=== PATIENT | male | born 2000 | race Hispanic/Latino ===

== ENCOUNTER 2018-06-23 23:54 | Emergency (ER) | payer OTHER ==
--- OUTSIDE RECORDS SUMMARY | 2018-06-23 23:56 | XMS REPORT ---
:2000 Author Organization [facility] Address [address] [place] [address] Dr. Baltazar [address] [place] [id number] Care Team Providers Name Role Phone Unavailable Unavailable Unavailable Problems This patient has no known problems. Allergies, Adverse Reactions, Alerts This patient has no known allergies or adverse reactions. Medications This patient has no known medications.
--- NOTE | 2018-06-24 01:11 | ER ---
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 Transition of care: patient was not received from another setting of care. Onset of symptoms was June 23, 2018. Risk Assessment: Do you want to hurt yourself or someone else? Patient reports no desire to harm self or others. Initial Sepsis Screen: Does the patient meet any 2 criteria? No. Patient's initial sepsis screen is negative. Does the patient have a suspected source of infection? No. Patient's initial sepsis screen is negative. Care prior to arrival: None. 00:16 Method Of Arrival: Ambulatory jd3 00:16 Acuity: CARIDAD 4 jd3 Historical: - Allergies: 00:19 No Known Allergies; jd3 - Home Meds: 00:19 None [Active]; jd3 - PMHx: 00:19 None; jd3 - PSHx: 00:19 Tonsillectomy; jd3 - Immunization history:: Adult Immunizations up to date. - Social history:: Smoking status: Patient/guardian denies using tobacco. - Ebola Screening: : Patient negative for fever greater than or equal to 101.5 degrees Fahrenheit, and additional compatible Ebola Virus Disease symptoms. Screenin:22 Abuse screen: Denies threats or abuse. Nutritional screening: No deficits noted. jd3 Tuberculosis screening: No symptoms or risk factors identified. Fall Risk Ambulatory Aid- None/Bed Rest/Nurse Assist (0 pts). Gait- Normal/Bed Rest/Wheelchair (0 pts) Mental Status- Oriented to own ability (0 pts). Total Harding Fall Scale indicates No Risk (0-24 pts). Assessment: 00:20 General: Appears in no apparent distress. uncomfortable, Behavior is calm, cooperative, jd3 appropriate for age. Pain: Complains of pain in low back area Quality of pain is described as aching. Neuro: Level of Consciousness is awake, alert, obeys commands, Oriented to person, place, time, situation, Appropriate for age. Cardiovascular: Capillary refill < 3 seconds Patient's skin is warm and dry. Respiratory: Airway is patent Respiratory effort is even, unlabored, Respiratory pattern is regular, symmetrical. GI: No signs and/or symptoms were reported involving the gastrointestinal system. : Reports pain in lower back Denies burning with urination, inability to void, urinary frequency, blood in the urine. EENT: No signs and/or symptoms were reported regarding the EENT system. Derm: Skin is intact, Skin is dry, Skin is normal, Skin temperature is warm. Musculoskeletal: Circulation, motion, and sensation intact. Range of motion: intact in all extremities, back pain not reproducible by palpation. 01:08 Reassessment: provider at bedside. jd3 01:16 Reassessment: Patient appears in no apparent distress at this time. Patient and/or jd3 family updated on plan of care and expected duration. Pain level reassessed. Patient is alert, oriented x 3, equal unlabored respirations, skin warm/dry/pink. Patient states feeling better. Vital Signs: 00:19 BP 153 / 85; Pulse 88; Resp 17 S; Temp 98.4(O); Pulse Ox 100% on R/A; Weight 113.4 kg jd3 (R); Height 6 ft. 1 in. (185.42 cm) (R); Pain 5/10; 00:19 Body Mass Index 32.98 (113.40 kg, 185.42 cm) jd3 ED Course: 00:05 Patient arrived in ED. es 00:05 Samantha Florentino MD is Private Physician. es 00:08 Lee Smith RN is Primary Nurse. jd3 00:18 Triage completed. jd3 00:20 Arm band placed on. jd3 00:21 Herman Sanchez MD is Attending Physician. ps1 00:23 Patient has correct armband on for positive identification. Bed in low position. Call jd3 light in reach. Side rails up X 1. Adult w/ patient. 01:10 Samantha Florentino MD is Referral Physician. ps1 01:15 No provider procedures requiring assistance completed. Patient did not have IV access jd3 during this emergency room visit. Administered Medications: No medications were administered Outcome: 01:10 Discharge ordered by . ps1 01:16 Discharged to home ambulatory. jd3 01:16 Condition: stable 01:16 Discharge instructions given to patient, Instructed on discharge instructions, follow up and referral plans. medication usage, Demonstrated understanding of instructions, follow-up care, medications, Prescriptions given X 3. 01:17 Patient left the ED. jd3 Signatures: Shaniqua Jane Jonathon, RN RN jd3 Herman Sanchez MD MD ps1 Corrections: (The following items were deleted from the chart) 00:25 00:20 : No signs and/or symptoms were reported regarding the genitourinary system. jd3jd3 00:25 00:20 EENT: No signs and/or symptoms were reported regarding the EENT system. jd3 jd3
--- NOTE | 2018-06-24 01:11 | EDPHYS ---
Physician Documentation [facility] Name: Denny Beasley Age: 17 yrs Sex: Male : 2000 Arrival Date: 06/24/2018 Time: 00:05 Bed 24 Private MD: Samantha Florentino ED Physician Herman Sanchez HPI: 06/24 00:53 This 17 yrs old Male presents to ER via Ambulatory with complaints of Back ps1 Pain. 00:53 atraumatic. localized to right lower back. No urinary complaints. No fever. Pain is ps1 rated as mild and improving. Not taking any medications. Has been mowing yards. . Historical: - Allergies: 00:19 No Known Allergies; jd3 - Home Meds: 00:19 None [Active]; jd3 - PMHx: 00:19 None; jd3 - PSHx: 00:19 Tonsillectomy; jd3 - Immunization history:: Adult Immunizations up to date. - Social history:: Smoking status: Patient/guardian denies using tobacco. - Ebola Screening: : Patient negative for fever greater than or equal to 101.5 degrees Fahrenheit, and additional compatible Ebola Virus Disease symptoms. ROS: 00:53 Constitutional: Negative for fever, chills, and weight loss, Eyes: Negative for injury, ps1 pain, redness, and discharge, Cardiovascular: Negative for chest pain, palpitations, and edema, Respiratory: Negative for shortness of breath, cough, wheezing, and pleuritic chest pain, Abdomen/GI: Negative for abdominal pain, nausea, vomiting, diarrhea, and constipation, MS/Extremity: Negative for injury and deformity, Skin: Negative for injury, rash, and discoloration, Neuro: Negative for headache, weakness, numbness, tingling, and seizure. 00:53 Back: Positive for pain with movement. Exam: 00:53 Constitutional: This is a well developed, well nourished patient who is awake, alert, ps1 and in no acute distress. Head/Face: Normocephalic, atraumatic. Eyes: Pupils equal round and reactive to light, extra-ocular motions intact. Lids and lashes normal. Conjunctiva and sclera are non-icteric and not injected. Chest/axilla: Normal chest wall appearance and motion. Nontender with no deformity. No lesions are appreciated. Cardiovascular: Regular rate and rhythm. No gallops, murmurs, or rubs. Normal PMI, no JVD. No pulse deficits. Respiratory: Lungs have equal breath sounds bilaterally, clear to auscultation and percussion. No rales, rhonchi or wheezes noted. No increased work of breathing, no retractions or nasal flaring. Abdomen/GI: Soft, non-tender, with normal bowel sounds. No distension or tympany. No guarding or rebound. No evidence of tenderness throughout. Skin: Warm, dry with normal turgor. Normal color with no rashes, no lesions, and no evidence of cellulitis. MS/ Extremity: Pulses equal, no cyanosis. Neurovascular intact. Full, normal range of motion. Neuro: Awake and alert, GCS 15, oriented to person, place, time, and situation. Cranial nerves II-XII grossly intact. Sensory grossly intact. Psych: Awake, alert, with orientation to person, place and time. Behavior, mood, and affect are within normal limits. 00:53 Back: pain, that is mild, ROM is normal, see osteopathic examination. Vital Signs: 00:19 BP 153 / 85; Pulse 88; Resp 17 S; Temp 98.4(O); Pulse Ox 100% on R/A; Weight 113.4 kg jd3 (R); Height 6 ft. 1 in. (185.42 cm) (R); Pain 5/10; 00:19 Body Mass Index 32.98 (113.40 kg, 185.42 cm) jd3 Procedures: 01:08 osteopathic manipulative treatment performed by HVLA after patient was evaluated in the ps1 prone and seated position. Patient had right SI joint dysfunction, lumbar group curve L3-5 to right with compensatory changes in mid and upper thoracic spine. Lumbar roll. HVLA. Manual decompression. Stable, increased ROM and less pain. . MDM: 01:08 Data reviewed: vital signs, nurses notes, and as a result, I will discharge patient. ps1 01:10 Patient medically screened. ps1 Administered Medications: No medications were administered Disposition: 06/24/18 01:10 Discharged to Home. Impression: Low back pain. - Condition is Stable. - Discharge Instructions: Back Pain, Adult. - Prescriptions for Anaprox DS 550 mg Oral Tablet - take 1 tablet by ORAL route every 12 hours As needed; 20 tablet. Robaxin 500 mg Oral Tablet - take 2 tablet by ORAL route every 6 hours As needed; 40 tablet. Medrol (Leonardo) 4 mg Oral Tablets, Dose Pack - take 1 tablet by ORAL route as directed - follow package instructions; 1 packet. - Medication Reconciliation Form, Thank You Letter, Antibiotic Education, Prescription Opioid Use form. - Follow up: Samantha Florentino MD; When: As needed; Reason: Recheck today's complaints, Continuance of care, Re-evaluation by your physician. Follow up: Emergency Department; When: As needed; Reason: Worsening of condition. Signatures: Lee Smith RN RN jd3 Herman Sanchez MD MD ps1 Corrections: (The following items were deleted from the chart) 01:17 01:10 06/24/2018 01:10 Discharged to Home. Impression: Low back pain. Condition is jd3 Stable. Forms are Medication Reconciliation Form, Thank You Letter, Antibiotic Education, Prescription Opioid Use. Follow up: Samantha Florentino; When: As needed; Reason: Recheck today's complaints, Continuance of care, Re-evaluation by your physician. Follow up: Emergency Department; When: As needed; Reason: Worsening of condition. ps1
== END 2018-06-24 01:17 | disposition home or self-care (01) ==
LOC: ER 23:54
DX: M54.5 Low back pain (principal)
CPT/HCPCS: 99282

== ENCOUNTER 2019-06-12 11:03 | Emergency (ER) | payer OTHER, SELFPAY ==
[2019-06-12 12:07] VITALS: BP 152/89; TEMP 97.3; O2SAT 100
== END 2019-06-12 11:57 | disposition home or self-care (01) ==
LOC: ER 11:03
DX: R19.7 Diarrhea, unspecified (principal)
CPT/HCPCS: 99282

== ENCOUNTER 2022-11-18 11:19 | Emergency (ER) | payer SELFPAY ==
--- OUTSIDE RECORDS SUMMARY | 2022-11-18 11:23 | XMS REPORT | Continuity of Care Document ---
:2000 Author Organization [facility] Address [address] [place] [address] [place] [id number] Care Team Providers Name Role Phone Unavailable Unavailable Unavailable Problems This patient has no known problems. Allergies, Adverse Reactions, Alerts This patient has no known allergies or adverse reactions. Medications This patient has no known medications. Procedures This patient has no known procedures. Results This patient has no known results.
[2022-11-18] MEDS ORDERED: ONDANSETRON 4 MG (ODT) TAB ONE (11:49)
[2022-11-18 12:27] LABS: Absolute Lymphocytes (CBC) 2.5 K/uL (0.7-4.9); Hematocrit 49.3 % (39.6-49.0); MCV 85.6 fL (80-100); MPV 7.6 fL (7.6-11.3); Platelets 298 thou/uL (152-406); RBC Red Blood Cell Count 5.77 M/uL (4.33-5.43)
[2022-11-18] MEDS ORDERED: NA CHLORIDE 0.9% 1,000 ML ONE (12:44)
[2022-11-18 12:49] LABS: Albumin 4.4 g/dL (3.4-5.0); Bilirubin Total 0.3 mg/dL (0.2-1.0); Potassium 3.9 mEq/L (3.5-5.1); Protein, Total 8.4 g/dL (6.4-8.2)
--- NOTE | 2022-11-18 13:49 | EDPHYS ---
Physician Documentation [facility] Name: Denny Beasley Age: 22 yrs Sex: Male : 2000 Arrival Date: 11/18/2022 Time: :19 Bed 18 Private MD: ED Physician Loki Gallo HPI: 11/18 12:07 This 22 yrs old Male presents to ER via Wheelchair with complaints of rt Nausea/Vomiting, Dizziness. 12:07 Patient presents to the ED with nausea, vomiting, lightheadedness. This started acutely rt at work. Denies any abdominal pain. Denies other acute complaints at this time. Symptoms are moderate in severity, no other aggravating alleviating factors.. Historical: - Allergies: : No Known Allergies; ko1 - Home Meds: : None [Active]; ko1 - Immunization history:: Adult Immunizations up to date. - Social history:: Smoking status: Patient denies any tobacco usage or history of. - Family history:: not pertinent. ROS: 12:07 Constitutional: Negative for fever, chills, and weight loss, Cardiovascular: Negative rt for chest pain, palpitations, and edema, Respiratory: Negative for shortness of breath, cough, wheezing, and pleuritic chest pain, MS/Extremity: Negative for injury and deformity, Skin: Negative for injury, rash, and discoloration, Psych: Negative for depression, anxiety, suicide ideation, homicidal ideation, and hallucinations. 12:07 Abdomen/GI: Positive for nausea and vomiting, Negative for abdominal pain. 12:07 Neuro: Positive for dizziness, Negative for altered mental status. Exam: 12:08 Constitutional: This is a well developed, well nourished patient who is awake, alert, rt and in no acute distress. Head/Face: Normocephalic, atraumatic. Chest/axilla: Normal chest wall appearance and motion. Nontender with no deformity. No lesions are appreciated. Cardiovascular: Regular rate and rhythm with a normal S1 and S2. No gallops, murmurs, or rubs. Normal PMI, no JVD. No pulse deficits. Respiratory: Lungs have equal breath sounds bilaterally, clear to auscultation and percussion. No rales, rhonchi or wheezes noted. No increased work of breathing, no retractions or nasal flaring. Abdomen/GI: Soft, non-tender, with normal bowel sounds. No distension or tympany. No guarding or rebound. No evidence of tenderness throughout. Skin: Warm, dry with normal turgor. Normal color with no rashes, no lesions, and no evidence of cellulitis. MS/ Extremity: Pulses equal, no cyanosis. Neurovascular intact. Full, normal range of motion. Neuro: Awake and alert, GCS 15, oriented to person, place, time, and situation. Cranial nerves II-XII grossly intact. Motor strength 5/5 in all extremities. Sensory grossly intact. Cerebellar exam normal. Normal gait. Psych: Awake, alert, with orientation to person, place and time. Behavior, mood, and affect are within normal limits. 12:31 ECG was reviewed by the Attending Physician. rt Vital Signs: 11:30 BP 129 / 72; Pulse 67; Resp 16; Temp 96.8; Pulse Ox 100% ; ko1 12:44 BP 129 / 83; Pulse 75; Resp 16; Pulse Ox 100% on R/A; Pain 0/10; me1 14:02 BP 141 / 77; Pulse 77; Resp 16; Pulse Ox 100% ; me1 14:15 BP 148 / 74; Pulse 77; Resp 17; Pulse Ox 100% on R/A; me1 12:44 Pain Scale: Adult me1 MDM: 11:36 Patient medically screened. rt 15:57 Differential diagnosis: Gastroenteritis, dehydration, gastritis. Data reviewed: vital rt signs, nurses notes. I considered the following discharge prescriptions or medication management in the emergency department Medications were administered in the Emergency Department. See MAR. Test considered but Not performed: CT: Patient with complete resolution of symptoms with IV fluids, Zofran. He does have a white count, I reexamined the patient's abdomen, there is no areas of tenderness. Low suspicion for appendicitis, cholecystitis clinically, CT scan is not indicated at this time, patient instructed to return for any abdominal pain or other concerning symptoms.. Counseling: I had a detailed discussion with the patient and/or guardian regarding the historical points, exam findings, and any diagnostic results supporting the discharge/admit diagnosis, lab results, the need for outpatient follow up, to return to the emergency department if symptoms worsen or persist or if there are any questions or concerns that arise at home. Response to treatment: the patient's symptoms have resolved after treatment. 11/18 11:37 Order name: CBC with Diff; Complete Time: 12:49 rt 11/18 11:37 Order name: CMP; Complete Time: 12:49 rt 11/18 11:37 Order name: Lipase; Complete Time: 12:49 rt 11/18 11:37 Order name: EKG; Complete Time: 11:38 rt 11/18 11:37 Order name: IV Saline Lock; Complete Time: 12:23 rt 11/18 11:37 Order name: Labs collected and sent; Complete Time: 12:23 rt 11/18 11:37 Order name: EKG - Nurse/Tech; Complete Time: 12:23 rt EC:31 Rate is 77 beats/min. Rhythm is regular, Normal Sinus Rhythm with No ectopy. QRS Roebling rt is Normal. NM interval is normal. QRS interval is normal. QT interval is normal. No Q waves. T waves are Normal. No ST changes noted. Interpreted by me. Administered Medications: 11:38 Drug: Ondansetron Oral Disintegrating Tablet Oral Disintegrating Tablet 4 mg Route: PO; ko1 12:43 Follow up: Response: No adverse reaction; Nausea is decreased me1 12:38 Drug: NS 0.9% IV 1000 ml Route: IV; Rate: 1 bolus; Site: right antecubital; me1 13:15 Follow up: IV Status: Completed infusion; IV Intake: 1000ml me1 Disposition Summary: 11/18/22 13:49 Discharge Ordered Location: Home rt Problem: new rt Symptoms: have improved rt Condition: Stable rt Diagnosis - Nausea with vomiting, unspecified rt - Syncope Near rt Followup: rt - With: Private Physician - When: 2 - 3 days - Reason: Discharge Instructions: - Discharge Summary Sheet rt - Nausea and Vomiting, Adult rt - Near-Syncope rt Forms: - Work release form rt - Medication Reconciliation Form rt - Thank You Letter rt - Antibiotic Education rt - Prescription Opioid Use rt - Patient Portal Instructions rt - Leadership Thank You Letter rt Prescriptions: - ondansetron 4 mg Oral Tablet,disintegrating - take 1 tablet by ORAL route every 6 hours; 21 tablet; Refills: 0, Product rt Selection Permitted Signatures: [facility] Chrystal Razo RN RN ko1 Loki Gallo MD MD rt Celia Blanco RN RN me1
--- NOTE | 2022-11-18 13:49 | ER ---
Nurse's Notes [facility] Name: Denny Beasley Age: 22 yrs Sex: Male : 2000 Arrival Date: 11/18/2022 Time: 11:19 Bed 18 Private MD: Diagnosis: Nausea with vomiting, unspecified;Syncope Near Presentation: 11/18 11:30 Chief complaint: Patient states: nausea vomiting and dizziness started this morning at ko1 work. Coronavirus screen: At this time, the client does not indicate any symptoms associated with coronavirus-19. Ebola Screen: No symptoms or risks identified at this time. Initial Sepsis Screen: Does the patient meet any 2 criteria? No. Patient's initial sepsis screen is negative. Does the patient have a suspected source of infection? No. Patient's initial sepsis screen is negative. Risk Assessment: Do you want to hurt yourself or someone else? Patient reports no desire to harm self or others. Onset of symptoms was November 18, 2022. 11:30 Method Of Arrival: Wheelchair ko1 11:30 Acuity: CARIDAD 3 ko1 Triage Assessment: 11:31 General: Appears ill, Behavior is calm, cooperative, appropriate for age. Pain: Denies ko1 pain. GI: Reports nausea, vomiting. Historical: - Allergies: 11:31 No Known Allergies; ko1 - Home Meds: 11:31 None [Active]; ko1 - Immunization history:: Adult Immunizations up to date. - Social history:: Smoking status: Patient denies any tobacco usage or history of. - Family history:: not pertinent. Screenin:40 [facility] ED Fall Risk Assessment (Adult) History of falling in the last 3 months, me1 including since admission No falls in past 3 months (0 pts) Confusion or Disorientation No (0 pts) Intoxicated or Sedated No (0 pts) Impaired Gait Yes (1 pt) Mobility Assist Device Used No (0 pt) Altered Elimination No (0 pt) Score/Fall Risk Level 0 - 2 = Low Risk. Abuse screen: Denies threats or abuse. Nutritional screening: No deficits noted. Tuberculosis screening: No symptoms or risk factors identified. Assessment: 12:40 General: Appears uncomfortable, well groomed, well developed, well nourished, Behavior me1 is calm, cooperative, appropriate for age, Reports he was at work this morning and became dizzy, nauseated and unsteady on his feet. Denies fever, feeling ill, fatigue, chills. Pain: Denies pain. Neuro: Level of Consciousness is awake, alert, obeys commands, Oriented to person, place, time, situation, Appropriate for age. Cardiovascular: Capillary refill < 3 seconds Patient's skin is warm and dry. Respiratory: Airway is patent Respiratory effort is even, unlabored, Respiratory pattern is regular, symmetrical. GI: Abdomen is non-distended, Reports nausea. Vital Signs: 11:30 BP 129 / 72; Pulse 67; Resp 16; Temp 96.8; Pulse Ox 100% ; ko1 12:44 BP 129 / 83; Pulse 75; Resp 16; Pulse Ox 100% on R/A; Pain 0/10; me1 14:02 BP 141 / 77; Pulse 77; Resp 16; Pulse Ox 100% ; me1 14:15 BP 148 / 74; Pulse 77; Resp 17; Pulse Ox 100% on R/A; me1 12:44 Pain Scale: Adult wi1 ED Course: 11:22 Patient arrived in ED. mr 11:25 Loki Gallo MD is Attending Physician. rt 11:31 Triage completed. ko1 11:31 Arm band placed on right wrist. Patient placed in waiting room, Patient notified of ko1 wait time. 12:16 Celia Blanco, RN is Primary Nurse. me1 12:23 CBC with Diff Sent. bc6 12:23 CMP Sent. bc6 12:23 Lipase Sent. bc6 12:23 Inserted saline lock: 20 gauge in right antecubital area, using aseptic technique. bc6 Blood collected. 12:40 Patient has correct armband on for positive identification. Bed in low position. Call me1 light in reach. Side rails up X 1. Provided Education on: POC. Verbalized understanding.. 12:40 No provider procedures requiring assistance completed. Flushed right antecubital. me1 14:15 IV discontinued, intact, bleeding controlled, No redness/swelling at site. Pressure me1 dressing applied. Administered Medications: 11:38 Drug: Ondansetron Oral Disintegrating Tablet Oral Disintegrating Tablet 4 mg Route: PO; ko1 12:43 Follow up: Response: No adverse reaction; Nausea is decreased me1 12:38 Drug: NS 0.9% IV 1000 ml Route: IV; Rate: 1 bolus; Site: right antecubital; me1 13:15 Follow up: IV Status: Completed infusion; IV Intake: 1000ml me1 Medication: 12:40 VIS not applicable for this client. me1 Intake: 13:15 IV: 1000ml; Total: 1000ml. me1 Outcome: 13:49 Discharge ordered by MD. rt 14:15 Discharged to home ambulatory, with significant other. me1 14:15 Condition: stable 14:15 Discharge instructions given to patient, significant other, Instructed on discharge instructions, follow up and referral plans. medication usage, Demonstrated understanding of instructions, follow-up care, medications, Prescriptions given X 1. 14:16 Patient left the ED. me1 Signatures: Nicky Torres mr Chrystal Villafana, RN RN ko1 Loki Gallo MD MD rt Christina Garcia 6 Celia Blanco, EDDY RN me1
[2022-11-18 14:39] VITALS: TEMP 96.8; O2SAT 100
[2022-11-18 14:43] VITALS: BP 148/74
--- NOTE | 2022-11-19 16:36 | EKG ---
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
== END 2022-11-18 14:16 | disposition home or self-care (01) ==
LOC: ER 11:19
DX: R11.2 Nausea with vomiting, unspecified (principal); R55 Syncope and collapse
CPT/HCPCS: 36415; 80053; 83690; 85025; 93005; 96360; 99284; J7030; Q0162